=== PATIENT | male | born 1985 | race Caucasian/White ===

== ENCOUNTER 2017-04-18 22:46 | Emergency (ER) | payer OTHER ==
[~2017-04-18] VITALS: Ht 175.3 cm; Wt 79.0 kg
[2017-04-18 22:51] VITALS: BP 143/96
[2017-04-19] MEDS ORDERED: TraMADol HCL 50 MG TABLET PO ONE (00:15)
== END 2017-04-19 00:27 | disposition home or self-care (01) ==
LOC: EMS 22:50
DX: S93.402A Sprain of unspecified ligament of left ankle, initial encounter (principal); X50.1XXA Overexertion from prolonged static or awkward postures, initial encounter; Y93.89 Activity, other specified; Y92.89 Other specified places as the place of occurrence of the external cause; Y99.9 Unspecified external cause status
CPT/HCPCS: 99284